=== PATIENT | male | born 1970 | race African-American/Black ===

== ENCOUNTER 2019-10-30 20:40 | Emergency (ER) | payer MEDICAID ==
[~2019-10-30] VITALS: Ht 188 cm; Wt 103.0 kg
[2019-10-30] MEDS ORDERED: MORPHINE SULFATE 4 MG/ML CPJ (NOT FOR IM USE) IV STA (20:59)
[2019-10-30] MEDS ORDERED: SODIUM CHLORIDE 0.9% 1,000 ML IV ONE (20:59)
[2019-10-30] MEDS ORDERED: ONDANSETRON HCL 4MG/2ML INJ IV STA (20:59)
[2019-10-30 21:33] LABS: BASOPHILS % 0.8 % (0.0-2.0); EOSINOPHILS % 1.7 % (0.0-5.0); HEMATOCRIT. 42.1 % (42.0-52.0); HEMOGLOBIN. 14.5 g/dL (14.0-18.0); MEAN CORPUSCULAR VOLUME 98.4 fL (80.0-94.0); MEAN PLATELET VOLUME 9.5 fl (7.4-10.4); MONOCYTES % 5.7 % (2.0-8.0); NEUTROPHILS % 50.8 % (40.0-76.0); PLATELET 190 x1000/uL (130-400); RED BLOOD CELL COUNT 4.28 mill/uL (4.7-6.1)
[2019-10-30 21:40] LABS: CHLORIDE 104 mEq/L (98-107)
[2019-10-30 21:45] LABS: PARTIAL THROMBOPLASTIN TIME 26.5 sec (23.4-31.0); PROTHROMBIN TIME 10.7 sec (9.6-11.0)
[2019-10-30] MEDS ORDERED: MORPHINE SULFATE 4 MG/ML CPJ (NOT FOR IM USE) IV ONE (23:15)
[2019-10-30 23:22] VITALS: BP 159/77
[2019-10-30] MEDS ORDERED: ONDANSETRON HCL 4MG/2ML INJ IV ONE (23:30)
== END 2019-10-30 23:46 | disposition short-term general hospital (02) ==
LOC: ER 20:40
DX: S32.89XB Fracture of other parts of pelvis, initial encounter for open fracture (principal); S89.82XA Other specified injuries of left lower leg, initial encounter; F17.210 Nicotine dependence, cigarettes, uncomplicated; V23.4XXA Motorcycle driver injured in collision with car, pick-up truck or van in traffic accident, initial encounter; Y93.89 Activity, other specified; Y92.488 Other paved roadways as the place of occurrence of the external cause
CPT/HCPCS: 36415; 71045; 73502; 73552; 73562; 76705; 80053; 85025; 85610; 85730; 93005; 96361; 96374; 96375; 96376; 99285; J2270; J2405; J7030